=== PATIENT | female | born 1990 | race Caucasian/White ===

== ENCOUNTER 2016-11-19 17:12 | Emergency (ER) | payer BC, OTHER ==
[2016-11-19 17:18] VITALS: BP 117/71; PULSE 78; RESP 16; TEMP 98.2; O2SAT 96
[2016-11-19] MEDS ORDERED: IBUPROFEN 600 MG TAB PO ONE (17:44)
--- NOTE | 2016-11-19 17:47 | EDPHY ---
H & P Stated Complaint: head butted by dog in her nose sunday/swelling/pain Source: Patient Exam Limitations: No limitations - Personal History LMP (Females 10-55): IUD In Place Current Tetanus/Diphtheria Vaccine: Yes Tetanus Vaccine Date: <10 yrs - Medical/Surgical History Hx Asthma: No Hx Chronic Respiratory Disease: No Hx Diabetes: No Hx Cardiac Disease: No Hx Renal Disease: No Hx Cirrhosis: No Hx Alcoholism: No Hx HIV/AIDS: No Hx Splenectomy or Spleen Trauma: No Other PMH: pmh- ADD - Social History Smoking Status: Never smoked Time Seen by Provider: 11/19/16 17:22 HPI/ROS: CHIEF COMPLAINT: nose contusion, mild headache HISTORY OF PRESENT ILLNESS: 26-year-old female presents emergency department complaining of nose pain. Patient reports she was struck in the nose by her boyfriend dog 2 days ago. Patient reports her nose did not bleed, she has not taken any medication such as ibuprofen. No loss of consciousness, she remembers the entire accident. No nausea. Patient does report a mild frontal headache. Patient denies confusion. She is able to breathe out of her nose without difficulty, no other complaints. REVIEW OF SYSTEMS: A comprehensive 10 point review of systems is otherwise negative aside from elements mentioned in the history of present illness. (Renetta Butt) - Physical Exam Exam: GEN: Awake, alert, oriented, no acute distress HEENT: Extraocular motions intact, nasal bridge with tenderness to palpation, minimal swelling, no deformity, no ecchymosis, no septal hematoma RESP: nl resp effort MSK: Normal appearing SKIN: No rash or break in skin Neuro: Grossly intact (Renetta Butt) Constitutional: Initial Vital Signs Temperature (C) 36.8 C 11/19/16 17:15 Heart Rate 78 11/19/16 17:15 Respiratory Rate 16 11/19/16 17:15 Blood Pressure 117/71 11/19/16 17:15 O2 Sat (%) 96 11/19/16 17:15 O2 Delivery Mode Room Air Allergies/Adverse Reactions: Sulfa (Sulfonamide Antibiotics) Allergy (Verified 11/19/16 17:15) Home Medications: Medication Instructions Recorded Amphetamine Salts 5 mg Tablet 02/11/14 Ativan 01/15/16 LORazepam [Ativan 1 mg (RX)] 1 mg PO Q6-8PRN PRN #14 tab 01/15/16 Medical Decision Making ED Course/Re-evaluation: This patient presents after a minor head injury with mild headache, no amnesia or LOC. Neurologic exam normal. No indication for neuro imaging. CHI precautions given. (Renetta Butt) Differential Diagnosis: The differential diagnosis for the patient's head injury included but was not limited to concussion, skull fracture, intra-parenchymal contusion, subarachnoid , subdural and epidural hematoma. (Renetta Butt) Other Provider: The patient was evaluated and managed by the Physician Etl Architect/ Nurse Practitioner. My co-signature indicates that I have reviewed this chart and I agree with the findings and plan of care as documented. I am the secondary supervising physician. (Nancy Henson) - Data Points Medications Given: Discontinued Medications Ibuprofen (Motrin) 600 mg PO EDNOW ONE Stop: 11/19/16 17:45 Last Admin: 11/19/16 18:02 Dose: 600 mg Departure - Departure Disposition: Home, Routine, Self-Care Clinical Impression: Nasal contusion, Minor head injury without loss of consciousness Condition: Good Instructions: Head Injury (ED), Nasal Contusion (ED) Additional Instructions: Take 600 mg of ibuprofen every 8 hours with food for 3 days for pain. Ice to your nose. Follow up with the Ear Nose and Throat doctor in 1 week for any deformity or difficulty breathing out of your nostrils once the swelling has resolved. Follow up with the concussion specialist for any symptoms of concussion such as mild nausea, mild, feeling foggy that last past Sunday. Return to the emergency department immediately for any forceful vomiting, confusion, altered gait, seizure-like activity, blurred vision, any new symptoms or concerns. Referrals: Susan Sullivan MD [Medical Doctor] - As per Instructions (ENT on-call) Priyanka Pelayo MD [Medical Doctor] - As per Instructions (Concussion specialist on-call)
== END 2016-11-19 18:02 | disposition home or self-care (01) ==
DX: S00.33XA Contusion of nose, initial encounter (principal); S09.90XA Unspecified injury of head, initial encounter; W55.89XA Other contact with other mammals, initial encounter

== ENCOUNTER 2018-01-30 05:40 | Emergency (ER) | payer BC ==
[2018-01-30 05:45] VITALS: BP 109/81
[2018-01-30] MEDS ORDERED: KETOROLAC 30 MG/1 ML SDV IM ONE (06:10)
[2018-01-30] MEDS ORDERED: DIAZEPAM 5 MG PREPACK#4 BTL TAKEHOME ONE (06:10)
--- NOTE | 2018-01-30 06:12 | EDPHY ---
H & P Stated Complaint: R shoulder pain x24 hours Time Seen by Provider: 01/30/18 05:48 HPI/ROS: HPI The patient presents with right shoulder pain which has been present for the last 1 day. She awoke with the pain yesterday while visiting [place]. The pain is right-sided and starts in her right neck, travels down her right shoulder to her arm associated with numbness and tingling. She took a plane ride yesterday and the pain became worse. It has improved with Tylenol though continues to return. She does not have any weakness of her arms or legs. She does not have any injury to her neck or back. She describes the pain as sharp. She has no prior history of similar.. REVIEW OF SYSTEMS Constitutional: No fever, no chills. Eyes: No discharge. ENT: No sore throat. Cardiovascular: No chest pain, no palpitations. Respiratory: No cough, no shortness of breath. Gastrointestinal: No abdominal pain, no vomiting. Genitourinary: No hematuria. Musculoskeletal: No back pain. Skin: No rashes. Neurological: No headache. PMHx: Healthy Soc Hx: Works in [employer], [employer] PHYSICAL General Appearance: Alert, no distress Eyes: Pupils equal and round no pallor or injection ENT, Mouth: Mucous membranes moist Respiratory: There are no retractions, lungs are clear to auscultation Cardiovascular: Regular rate and rhythm Gastrointestinal: Abdomen is soft and non-tender, no masses, bowel sounds normal Neurological: A&O, 5/5 strength in upper extremities which is symmetric, sensation is intact to light touch Skin: Warm and dry, no rashes Musculoskeletal: Neck is supple with paraspinal tenderness at approximately C5- C6, there is also tenderness of the right trapezius muscle group Extremities: symmetrical, full range of motion Psychiatric: Patient is oriented X 3, there is no agitation Source: Patient Exam Limitations: No limitations - Personal History LMP (Females 10-55): IUD In Place Current Tetanus/Diphtheria Vaccine: Yes Tetanus Vaccine Date: <10 yrs - Medical/Surgical History Hx Asthma: No Hx Chronic Respiratory Disease: No Hx Diabetes: No Hx Cardiac Disease: No Hx Renal Disease: No Hx Cirrhosis: No Hx Alcoholism: No Hx HIV/AIDS: No Hx Splenectomy or Spleen Trauma: No Other PMH: pmh- ADD - Social History Smoking Status: Never smoked Constitutional: Initial Vital Signs Temperature (C) 37.0 C 01/30/18 05:42 Heart Rate 83 01/30/18 05:42 Respiratory Rate 16 01/30/18 05:42 Blood Pressure 109/81 H 01/30/18 05:42 O2 Sat (%) 99 01/30/18 05:42 O2 Delivery Mode Room Air Allergies/Adverse Reactions: Sulfa (Sulfonamide Antibiotics) Allergy (Verified 11/19/16 17:15) Home Medications: Medication Instructions Recorded Amphetamine Salts 5 mg Tablet 02/11/14 Naproxen 500 mg PO BID #30 tablet 01/30/18 Medical Decision Making Differential Diagnosis: 27-year-old healthy female presents with atraumatic right-sided neck and shoulder pain. This is associated with paresthesias of her right arm. On exam , she has tenderness at right cervical paraspinal muscle group throughout the trapezius muscle group without any neurologic deficits. Differential diagnosis includes cervical radiculopathy, trapezius muscle spasm, less likely rotator cuff injury. I have stressed the importance of anti-inflammatory medications, Tylenol, rest, ice or heat for pain. I have advised her follow up with her primary care doctor for symptoms continue as she may benefit from physical therapy. She is happy with this plan. Here, I will give her an injection of Toradol and Valium prepack to help with any muscle spasm. - Data Points Medications Given: Discontinued Medications Diazepam (Valium 5 Mg Prepack#4) 1 btl TAKEHOME EDNOW ONE Stop: 01/30/18 06:11 Last Admin: 01/30/18 06:15 Dose: 1 btl Ketorolac Tromethamine (Toradol) 30 mg IM EDNOW ONE Stop: 01/30/18 06:11 Last Admin: 01/30/18 06:14 Dose: 30 mg Departure - Departure Disposition: Home, Routine, Self-Care Clinical Impression: Cervical radiculopathy Condition: Good Instructions: Naproxen (By mouth), Cervical Radiculopathy (ED) Additional Instructions: I recommend that you take the Naprosyn prescription every day. You can take Tylenol 1000 mg every 6 hr with this. If the pain is severe despite the above medications, then you can take Valium 2.5 mg every 6 hr to help with muscle spasm. You can use heat packs or ice packs to see if this helps with the pain. I would recommend that you follow up with your primary care doctor within a week for recheck. Please return to the emergency room if your worse in any way. Referrals: Tiana Dent MD [Primary Care Provider] - As per Instructions Prescriptions: Naproxen 500 mg PO BID #30 tablet
[2018-01-30] MEDS ORDERED: ACETAMINOPHEN 500 MG TAB PO ONE (06:29)
[2018-01-30] MEDS ORDERED: ACETAMINOPHEN 500 MG TAB ONE (06:30)
== END 2018-01-30 06:25 | disposition home or self-care (01) ==
DX: M54.12 Radiculopathy, cervical region (principal)
CPT/HCPCS: 96374; J1885

== ENCOUNTER 2018-01-30 22:35 | Emergency (ER) | payer BC, OTHER ==
[2018-01-30 22:39] VITALS: BP 105/68
[2018-01-30] MEDS ORDERED: LIDOCAINE 4%/MENTHOL 1% PATCH TD ONE (23:00)
[2018-01-30] MEDS ORDERED: OXYCODONE/APAP 5/325 TAB PO ONE (23:01)
--- NOTE | 2018-01-30 23:14 | EDPHY ---
H & P Stated Complaint: "pinched nerve", R shoulder pain, seen earlier - Personal History LMP (Females 10-55): IUD In Place Current Tetanus Diphtheria and Acellular Pertussis (TDAP): Yes Tetanus Vaccine Date: <10 yrs - Medical/Surgical History Hx Asthma: No Hx Chronic Respiratory Disease: No Hx Diabetes: No Hx Cardiac Disease: No Hx Renal Disease: No Hx Cirrhosis: No Hx Alcoholism: No Hx HIV/AIDS: No Hx Splenectomy or Spleen Trauma: No Other PMH: pmh- ADD - Social History Smoking Status: Never smoked Time Seen by Provider: 01/30/18 22:48 HPI/ROS: CHIEF COMPLAINT: Continued right shoulder and trapezius pain HISTORY OF PRESENT ILLNESS: 27-year-old female seen emergency department earlier today for similar complaints of right shoulder and trapezius pain, atraumatic, started after a flight from [place]. She will experience intermittent paresthesia to right upper extremity. No discoloration. No weakness. No wrist drop. No midline cervical pain. No dyspnea. No headache. No history of major or minor neck or head trauma, no neck manipulation history. No facial complaints. PRIMARY CARE PROVIDER: REVIEW OF SYSTEMS: A ten point review of systems was performed and is negative with the exception of the items mentioned in the HPI PAST MEDICAL & SURGICAL HISTORY: No pertinent medical or surgical history SOCIAL HISTORY:Nonsmoker PHYSICAL EXAM (Prior to examination, patient consented to physical exam, hands were washed and my usual and customary physical exam procedures followed) 1) GENERAL: Well-developed, well-nourished, alert and oriented. Appears uncomfortable, tearful. 2) HEAD: Normocephalic, atraumatic 3) HEENT: Pupils equal, round, reactive to light bilaterally. Sclera anicteric. Nasopharynx, oropharynx, clear, no lesions. Negative Homans.Moist Mucous membranes. 4) NECK: Full range of motion, no meningeal signs. 5) LUNGS: Clear auscultation bilaterally, no wheezes, no rhonchi, no retractions. 6) HEART: Regular rate and rhythm, no murmur, no heave, no gallop. 7) ABDOMEN: No guarding, no rebound, no focal tenderness, negative McBurney's, negative Nieves's, negative Rovsing's, negative peritoneal sign, 8) MUSCULOSKELETAL: Focal tender to palpation right trapezius and paraspinous cervical region. No lesions no vesicles. No crepitus. Soft compartments throughout the right upper extremity. Brisk pulses distally, normal coloration distally. No weakness. Moving all extremities, no focal areas of tenderness, no obvious trauma. No peripheral edema or discoloration. 9) BACK: No CVA tenderness, no midline vertebral tenderness, no fluctuance, no step-off, no obvious trauma, no visual or palpable abnormality. 10) SKIN: No rash, no petechiae. 11) NEURO: Awake, alert, and oriented to person, place and time. Answers questions appropriately. There were no obvious focal neurologic abnormalities. No cerebellar dysfunction. Normal steady gait. Upper and lower extremities bilaterally with strength 5 / 5, reflexes 2+.. DIFFERENTIAL DIAGNOSIS: In no particular order including but not limited to acute cervical strain, cervical radiculopathy, discogenic etiology, rotator cuff pathology (Ambrocio,Negra Cortney) Constitutional: Initial Vital Signs Temperature (C) 36.7 C 01/30/18 22:37 Heart Rate 73 01/30/18 22:37 Respiratory Rate 18 01/30/18 22:37 Blood Pressure 105/68 01/30/18 22:37 O2 Sat (%) 97 01/30/18 22:37 O2 Delivery Mode Room Air Allergies/Adverse Reactions: Sulfa (Sulfonamide Antibiotics) Allergy (Verified 01/30/18 22:36) Home Medications: Medication Instructions Recorded Amphetamine Salts 5 mg Tablet 02/11/14 Cyclobenzaprine [Flexeril 10 MG 10 mg PO TID #10 tab 01/30/18 (RX)] Naproxen 500 mg PO BID #30 tablet 01/30/18 oxyCODONE/APAP 5/325 [Percocet 1 tab PO Q6 #10 tab 01/30/18 5/325] Medical Decision Making ED Course/Re-evaluation: I reviewed the patient's old medical records. She has a nonfocal exam, no weakness, no deficits or upper extremity. She is focally tender to palpation right cervical paraspinous region and trapezius region with no deficits. At this time I do not think that emergent MRI is indicated of her cervical spine however this may be indicated on outpatient basis. I have recommend follow up with orthopedic spine surgery Dr. Paddy Mcocrd. Discharge the patient with lidocaine patch, Percocet, usual and customary return precautions and instructions.Doubt cervico-cranial vessel dissection. Patient is agreeable with this plan. I saw this patient independently based on established practice protocols. Care of patient under supervision of secondary supervising physician Dr Schwab with whom I discussed case. (Negra Albrecht) PHYSICIAN DOCUMENTATION: The patient was evaluated and managed by the Physician Wallpaper Inspector And Shipper. My co- signature indicates that I have reviewed this chart and I agree with the findings and plan of care as documented. I am the secondary supervising physician. (Vickie Schwab) - Data Points Medications Given: Discontinued Medications Miscellaneous Medication (Icy Hot Lidocaine/Menthol 4%/1% Patch) 1 patch TD EDNOW ONE Stop: 01/30/18 23:01 Last Admin: 01/30/18 23:09 Dose: 1 patch Oxycodone/Acetaminophen (Percocet 5/325) 1 tab PO EDNOW ONE Stop: 01/30/18 23:02 Last Admin: 01/30/18 23:08 Dose: 1 tab Oxycodone/Acetaminophen (Percocet 5/325mg Prepack#4) 1 btl TAKEHOME EDNOW ONE Stop: 01/30/18 23:16 Last Admin: 01/30/18 23:24 Dose: 1 btl Departure - Departure Disposition: Home, Routine, Self-Care Clinical Impression: Strain of cervical portion of right trapezius muscle Condition: Good Instructions: Oxycodone/Acetaminophen (By mouth), Cervical Strain (ED) Additional Instructions: Return to the ER immediately if you experience new or worsening neck pain, dizziness, visual disturbance, double vision, lightheadedness, facial droop, or any other symptoms that concern you. Avoid deep tissue massage and chiropractic manipulation, until symptom-free, and cleared by your regular health care provider. Referrals: Paddy Mccord MD [Medical Doctor] - 2-3 days, call for appt. Stand Alone Forms: School Excuse, Work Excuse Prescriptions: Cyclobenzaprine [Flexeril 10 MG (RX)] 10 mg PO TID #10 tab oxyCODONE/APAP 5/325 [Percocet 5/325] 1 tab PO Q6 #10 tab
[2018-01-30] MEDS ORDERED: OXYCODONE/APAP 5/325MG PREPACK#4 BTL TAKEHOME ONE (23:15)
[2018-01-31] MEDS ORDERED: PATCH REMOVAL 1 EA PATCH TD SCH (21:00)
== END 2018-01-30 23:37 | disposition home or self-care (01) ==
DX: S46.811A Strain of other muscles, fascia and tendons at shoulder and upper arm level, right arm, initial encounter (principal)